=== PATIENT | female | born 1940 | race Caucasian/White ===

== ENCOUNTER → 2017-12-11 18:13 | Outpatient (CLI) | payer MEDICARE ==
[2016-04-03 06:55] VITALS: BMI 23.2
[~2017-12-11 18:13] MED LIST: ASPIRIN81 MG PO; CALCIUM 600+D T1 TA1 PO; CELEXA40 MG PO; CIPRO500 MG; DIFLUCAN150 MG PO; ESTRACE2 MG PO; FLAGYL250 MG PO; FLAGYL500 MG PO; FLORASTOR250 MG PO; FLOVENT DI50 MCG/DIS INH; FLUTICASONE PRO16 GM NASAL; GABAPENTIN100 MG PO; IPRAT-ALBUT 0.5-3 ML UPD; KENALOG 0.1 % 115 GM TOPICAL; LEVAQUIN500 MG PO; MACRODANTIN100 MG PO; MIRALAX17 GM PO; MOBIC7.5 MG PO; MUCINEX DM ER1 EAC1 PO; MULTI-DAY VITAM1 TAB PO; NEURONTIN 300300 MG PO; NEXIUM40 MG; NEXIUM40 MG PO; NITROSTAT0.4 MG SL; OXYCODONE HCL10 MG PO; OXYCODONE HCL5 MG PO; OXYCONTIN15 MG PO; PERCOCET 5-3251 TAB PO; PLAVIX75 MG PO; PREMARIN0.625 MG PO; PREMARIN45 GM VG; PROTONIX40 MG PO; PULMICORT0.5 MG/21 INH; SINGULAIR10 MG PO; SOMA350 MG PO; TESSALON PERLE100 MG PO; TRIMETHOPRIM100 MG; TRIMETHOPRIM100 MG PO; VALIUM5 MG PO; ZOCOR10 MG PO; ZOFRAN ODT4 MG/UDTAB PO
== END | disposition home or self-care (01) ==
LOC: D.LABREF 18:13
DX: N39.0 Urinary tract infection, site not specified (principal); R31.9 Hematuria, unspecified

== ENCOUNTER → 2018-01-25 13:18 | Outpatient (CLI) | payer MEDICARE ==
[2016-04-03 06:55] VITALS: BMI 23.2
[~2018-01-25 13:18] MED LIST changes: +BUTRANS1 EAC1 TRANSDERM; +COMBIVENT RESPIM4 GM INH; +HYDROCODONE-APA1 TAB PO; -NEURONTIN 300300 MG PO; +NEURONTIN600 MG PO; +SYMBICORT 16010.2 GM INH
== END | disposition home or self-care (01) ==
LOC: D.US 13:18
DX: R60.0 Localized edema (principal)

== ENCOUNTER 2018-02-03 05:35 | Day surgery (SDC) | payer MEDICARE ==
[~2018-02-03] VITALS: Ht 162.6 cm; Wt 67.6 kg
--- NOTE | ~2018-02-03 | OP ---
PATIENT NAME: SAAD LAWLER MEDICAL RECORD: [id number] :38 LOCATION:[facility] ADMISSION DATE: SURGEON: KAREEM TEMPLE MD DATE OF OPERATION: 02/03/2018 SURGEON: Kareem Temple MD ANESTHESIA: TIVA by Darryl Cedillo CRNA. PREOPERATIVE DIAGNOSES: Recurrent urinary tract infections, check for mesh graft erosion into the urethra. PROCEDURE: Cystoscopy. FINDINGS: No urethral graft erosion. Single ureteral orifices, diffusely inflamed bladder. No bladder tumors. Possible urethral stricture dilated to 22.5-Polish with the cystoscope. CLINICAL HISTORY: This is a 78-year-old female, who has recurrent symptoms of urinary tract infection. Significantly, she has had a hysterectomy and a pubovaginal sling performed in 1999 and again in [address] Bartlett. She is now having pain in the urethral area. She is wondering whether she may have erosion of the pubovaginal sling into the urethra. SHE IS ALLERGIC TO REGLAN, CODEINE, DEMEROL, AND STATINS. We gave her Ancef rn observation to the OR. She does have significant cardiopulmonary history and she had clearance for this procedure by Dr. Mendoza of pulmonary and Dr. Sow of cardiology. DESCRIPTION OF PROCEDURE: The patient was given IV sedation. She was placed into dorsal lithotomy position and prepped and draped. We used the 22.5-Polish cystoscope with 30-degree lens. She has some urethral stricture which made passage of the scope difficult, but I did manage to get at the end. This would probably constitute a bit of dilation of the urethra. Going into the bladder, the bladder shows diffuse inflammation, but no bladder tumors. Specifically looking all around the trigone and urethral area, I do not see any graft erosion. Recurrent UTIs may just be a function of the urethral stricture. She also has atrophic vaginitis and could possibly benefit from vaginal estrogen cream. The bladder was emptied through the scope and then the scope was removed entirely. The patient was then brought back to the preoperative holding area. I will see her in followup in 2 weeks' time. TRANSINT:[id number] Voice Confirmation ID: [id number] DOCUMENT ID: [id number] KAREEM TEMPLE MD at 1152 CC: [id number] DICTATION DATE: 02/03/18 08 REPAIR SPECIALIST: 02/03/18 1138 [facility] [place] 02/03/18 [facility] [address] [place] [address]
[2018-02-03 06:41] VITALS: BP 110/49; Ht 162.6 cm; Wt 67.6 kg
[2018-02-03 07:14] LABS: HEMATOCRIT 39.2 % (36.0-48.0); HEMOGLOBIN 12.9 g/dL (12-16); MCH 30.8 pg (26.0-34.0); MCHC 32.9 g/dL (31.0-37.0); MCV 93.6 fL (80.0-100.0); MEAN PLATELET VOLUME 9.1 fL (7.4-10.4); RBC 4.19 10x6/uL (4.00-5.40); RDW 12.9 % (11.5-14.5); WBC 8.9 10x3/uL (4.8-10.8)
[2018-02-03 07:29] LABS: ANION GAP 11.6 mmol/L (8-16); CALCIUM 8.6 mg/dL (8.5-10.1); CARBON DIOXIDE 26.3 mmol/L (21.0-32.0); POTASSIUM - SERUM 3.9 mmol/L (3.5-5.1)
== END 2018-02-03 10:07 | disposition home or self-care (01) ==
LOC: D.OPS 05:35 → D.PAN 09:00 → D.OPS 09:00
PROVIDERS: Anesthesiology
DX: N39.0 Urinary tract infection, site not specified (principal); F17.200 Nicotine dependence, unspecified, uncomplicated; J44.9 Chronic obstructive pulmonary disease, unspecified; K21.9 Gastro-esophageal reflux disease without esophagitis; Z01.812 Encounter for preprocedural laboratory examination

== ENCOUNTER → 2018-02-08 11:08 | Outpatient (CLI) | payer MEDICARE ==
[2018-02-03 06:41] VITALS: BMI 25.6
== END | disposition home or self-care (01) ==
LOC: D.RAD 11:08
DX: M54.5 Low back pain (principal)

== ENCOUNTER 2018-04-28 12:13 | Observation (INO) | payer MEDICARE ==
[~2018-04-28] VITALS: Ht 162.6 cm; Wt 66.8 kg
[2018-04-28 15:05] LABS: BASOPHILS 0.5 % (0-2); EOSINOPHILS 1.8 % (0-7); HEMATOCRIT 39.4 % (36.0-48.0); HEMOGLOBIN 13.5 g/dL (12-16); IMMATURE GRANULOCYTES 0.1 % (0-5); LYMPHOCYTES 39.8 % (15-50); MCHC 34.3 g/dL (31.0-37.0); MCV 90.4 fL (80.0-100.0); MEAN PLATELET VOLUME 9.9 fL (7.4-10.4); MONOCYTES 6.3 % (2-11); NEUTROPHILS 51.5 % (40-80); RBC 4.36 10x6/uL (4.00-5.40); RDW 12.7 % (11.5-14.5); WBC 8.5 10x3/uL (4.8-10.8)
[2018-04-28 15:10] LABS: PLATELET COUNT 293 10x3/uL (130-400)
[2018-04-28 15:21] LABS: ALBUMIN 3.7 g/dL (3.4-5.0); ANION GAP 12.1 mmol/L (8-16); BILIRUBIN - TOTAL 0.33 mg/dL (0.2-1.3); CALCIUM 9.3 mg/dL (8.5-10.1); CARBON DIOXIDE 28.9 mmol/L (21.0-32.0); CREATININE - SERUM 0.8 mg/dL (0.6-1.3)
[2018-04-28 15:45] VITALS: BP 125/54; BMI 25.3
[2018-04-28 16:25] LABS: APPEARANCE CLEAR (CLEAR); BILIRUBIN NEGATIVE (NEGATIVE); COLOR YELLOW (YELLOW); GLUCOSE NEGATIVE (NEGATIVE); KETONE NEGATIVE (NEGATIVE); NITRITE NEGATIVE (NEGATIVE); PROTEIN NEGATIVE (NEGATIVE); UROBILINOGEN NORMAL (NORMAL)
[2018-04-28 16:26] LABS: BACTERIA FEW /hpf (NONE SEEN); EPITHELIAL CELLS OCC /hpf (0-5); WHITE CELLS - URINE OCC /hpf (0-5)
[2018-04-28 16:37] VITALS: BP 132/64
[2018-04-28 20:01] VITALS: BP 103/50
[2018-04-29 04:35] VITALS: BP 128/53
[2018-04-29 08:14] VITALS: BP 129/61
[2018-04-29 11:20] VITALS: Ht 162.6 cm; Wt 66.8 kg
== END 2018-04-29 12:43 | disposition home or self-care (01) ==
LOC: D.MS 12:13 → OBSVTIME 12:13 → D.MS 04-29 12:43
PROVIDERS: Family Medicine
DX: E86.0 Dehydration (principal); A08.4 Viral intestinal infection, unspecified; J44.9 Chronic obstructive pulmonary disease, unspecified

== ENCOUNTER → 2018-09-17 12:50 | Outpatient (CLI) | payer MEDICARE ==
[2018-04-29 11:20] VITALS: BMI 25.3
[~2018-09-17 12:50] MED LIST changes: +ASCORBIC ACID500 MG PO; -HYDROCODONE-APA1 TAB PO; +LEVOFLOXACIN500 MG PO; +LOPID600 MG PO; +NORCO 10-325 TA1 TAB PO
== END | disposition home or self-care (01) ==
LOC: D.LABREF 12:50
DX: D72.829 Elevated white blood cell count, unspecified (principal); R31.9 Hematuria, unspecified

== ENCOUNTER 2018-09-26 07:07 | Emergency (ER) | payer MEDICARE, MEDICAID ==
[~2018-09-26] VITALS: Ht 162.6 cm; Wt 66.4 kg
[~2018-09-26 07:07] MED LIST changes: -ASCORBIC ACID500 MG PO; -LEVOFLOXACIN500 MG PO; -LOPID600 MG PO
[2018-09-26 07:13] VITALS: Ht 162.6 cm; Wt 66.4 kg
[2018-09-26] MEDS ORDERED: LOPID600 MG PO (07:17)
[2018-09-26] MEDS ORDERED: NITROSTAT0.4 MG SL (07:18)
[2018-09-26] MEDS ORDERED: ASCORBIC ACID500 MG PO (07:19)
[2018-09-26 07:51] LABS: APPEARANCE CLEAR (CLEAR); BILIRUBIN NEGATIVE (NEGATIVE); COLOR YELLOW (YELLOW); GLUCOSE NEGATIVE (NEGATIVE); KETONE NEGATIVE (NEGATIVE); NITRITE NEGATIVE (NEGATIVE); PROTEIN NEGATIVE (NEGATIVE); SPECIFIC GRAVITY 1.005 (1.005-1.020); UROBILINOGEN NORMAL (NORMAL)
[2018-09-26 07:53] LABS: BASOPHILS 0.3 % (0-2); HEMATOCRIT 36.6 % (36.0-48.0); HEMOGLOBIN 12.2 g/dL (12-16); IMMATURE GRANULOCYTES 0.3 % (0-5); MCH 30.9 pg (26.0-34.0); MCHC 33.3 g/dL (31.0-37.0); MCV 92.7 fL (80.0-100.0); MEAN PLATELET VOLUME 12.3 fL (7.4-10.4); MONOCYTES 8.4 % (2-11); RBC 3.95 10x6/uL (4.00-5.40); RDW 12.9 % (11.5-14.5); WBC 10.1 10x3/uL (4.8-10.8)
[2018-09-26 07:54] LABS: PLATELET COUNT 131 10x3/uL (130-400)
[2018-09-26 08:14] LABS: ALBUMIN 3.8 g/dL (3.4-5.0); ALKALINE PHOSPHATASE 89 U/L (46-116); ALT (SGPT) 19 U/L (10-68); BILIRUBIN - TOTAL 0.63 mg/dL (0.2-1.3); CALC OSMOLALITY 269 mosm/kg (275-300); CARBON DIOXIDE 24.4 mmol/L (21.0-32.0); CHLORIDE - SERUM 100 mmol/L (98-107); CREATININE - SERUM 0.8 mg/dL (0.6-1.3); GLUCOSE 125 mg/dL (74-106); POTASSIUM - SERUM 4.7 mmol/L (3.5-5.1); PROTEIN - SERUM 7.4 g/dL (6.4-8.2); SODIUM 135 mmol/L (136-145); UREA NITROGEN 11 mg/dL (7-18); eGFR NON AFRICAN AMERICAN 73 mL/min (90-120)
[2018-09-26 08:17] LABS: AMYLASE - SERUM 74 U/L (25-115); LIPASE 281 U/L (73-393); TROPONIN-I < 0.017 ng/mL (0.000-0.060)
[2018-09-26] MEDS ORDERED: LEVOFLOXACIN500 MG PO (08:47)
[2018-09-26 09:58] VITALS: BP 135/53
== END 2018-09-26 10:00 | disposition home or self-care (01) ==
LOC: D.ER 07:07
PROVIDERS: Emergency Medicine
DX: R10.32 Left lower quadrant pain (principal); R10.31 Right lower quadrant pain; K57.32 Diverticulitis of large intestine without perforation or abscess without bleeding; F17.200 Nicotine dependence, unspecified, uncomplicated

== ENCOUNTER → 2018-10-29 13:49 | Outpatient (CLI) | payer MEDICARE, MEDICAID ==
[2018-09-26 07:13] VITALS: BMI 25.1
[~2018-10-29 13:49] MED LIST changes: +ASCORBIC ACID500 MG PO; +LEVOFLOXACIN500 MG PO; +LOPID600 MG PO
== END | disposition home or self-care (01) ==
LOC: D.LABREF 13:49
DX: R30.0 Dysuria (principal)

== ENCOUNTER → 2018-11-25 17:37 | Outpatient (CLI) | payer MEDICARE, MEDICAID ==
[2018-09-26 07:13] VITALS: BMI 25.1
== END | disposition home or self-care (01) ==
LOC: D.LABREF 17:37
DX: D72.829 Elevated white blood cell count, unspecified (principal); R31.9 Hematuria, unspecified

== ENCOUNTER 2019-11-11 07:11 | Emergency (ER) | payer MEDICARE, MEDICAID ==
[~2019-11-11] VITALS: Ht 162.6 cm; Wt 70.9 kg
[2019-11-11 07:17] VITALS: Ht 162.6 cm; Wt 70.9 kg
[2019-11-11] MEDS ORDERED: TRIMETHOPRIM PO (07:24)
[2019-11-11] MEDS ORDERED: MACRODANTIN100 MG PO (07:24)
[2019-11-11 08:24] LABS: APPEARANCE CLEAR (CLEAR); BILIRUBIN NEGATIVE (NEGATIVE); COLOR STRAW (YELLOW); GLUCOSE NEGATIVE (NEGATIVE); KETONE NEGATIVE (NEGATIVE); NITRITE NEGATIVE (NEGATIVE); PROTEIN NEGATIVE (NEGATIVE); SPECIFIC GRAVITY 1.005 (1.005-1.020); UROBILINOGEN NORMAL (NORMAL)
[2019-11-11 08:25] LABS: BASOPHILS 0.3 % (0-2); EOSINOPHILS 1.7 % (0-7); HEMATOCRIT 41.6 % (36.0-48.0); HEMOGLOBIN 14.1 g/dL (12-16); IMMATURE GRANULOCYTES 0.2 % (0-5); LYMPHOCYTES 24.1 % (15-50); MCH 31.1 pg (26.0-34.0); MCHC 33.9 g/dL (31.0-37.0); MCV 91.8 fL (80.0-100.0); MEAN PLATELET VOLUME 9.8 fL (7.4-10.4); MONOCYTES 9.4 % (2-11); NEUTROPHILS 64.3 % (40-80); RBC 4.53 10x6/uL (4.00-5.40); RDW 12.5 % (11.5-14.5); WBC 10.7 10x3/uL (4.8-10.8)
[2019-11-11 08:26] LABS: PLATELET COUNT 318 10x3/uL (130-400)
[2019-11-11 08:36] LABS: ANION GAP 16.1 mmol/L (8-16); CALCIUM 9.4 mg/dL (8.5-10.1); CARBON DIOXIDE 26.2 mmol/L (21.0-32.0); CREATININE - SERUM 0.8 mg/dL (0.6-1.3); POTASSIUM - SERUM 4.3 mmol/L (3.5-5.1)
[2019-11-11 08:43] LABS: BILIRUBIN - TOTAL 0.39 mg/dL (0.2-1.3); PROTEIN - SERUM 7.4 g/dL (6.4-8.2)
[2019-11-11] MEDS ORDERED: FLAGYL500 MG PO (08:59)
[2019-11-11] MEDS ORDERED: LEVOFLOXACIN500 MG PO (08:59)
[2019-11-11 09:27] VITALS: BP 183/79
== END 2019-11-11 09:28 | disposition home or self-care (01) ==
LOC: D.ER 07:11
PROVIDERS: Family Medicine
DX: K57.92 Diverticulitis of intestine, part unspecified, without perforation or abscess without bleeding (principal); E16.2 Hypoglycemia, unspecified; G62.9 Polyneuropathy, unspecified; I73.9 Peripheral vascular disease, unspecified